=== PATIENT | male | born 1985 | race Caucasian/White ===

== ENCOUNTER 2018-01-19 08:17 | Emergency (ER) | payer OTHER ==
[~2018-01-19] VITALS: Ht 177.8 cm; Wt 81.7 kg
[2018-01-19] MEDS ORDERED: MEDROL DOSEPAK4 MG PO (09:21)
[2018-01-19 09:47] VITALS: BP 134/82
== END 2018-01-19 09:47 | disposition home or self-care (01) ==
LOC: EME 08:17
DX: H91.91 Unspecified hearing loss, right ear (principal); L29.9 Pruritus, unspecified; H11.433 Conjunctival hyperemia, bilateral
CPT/HCPCS: 99281; 99283